=== PATIENT | female | born 1970 | race Asian ===

== ENCOUNTER → 2023-07-20 | Outpatient (REF) | payer OTHER, SELFPAY | LOC: DHSLP | PROVIDERS: ATTENDING PHYSICIAN Internal Medicine Critical Care Medicine | DX: G47.30 Sleep apnea, unspecified (principal); R06.83 Snoring; R40.0 Somnolence | CPT/HCPCS: 95800 ==

== ENCOUNTER 2024-01-13 16:14 | Emergency (ER) | payer OTHER, SELFPAY ==
[2024-01-13 16:20] VITALS: BP 146/89
--- NOTE | 2024-01-13 16:29 | ED.PDOC.TRB ---
ED Provider Triage
-
Patient seen by provider in Triage?: Seen in Triage
A medical screening examination has been initiated by a qualified medical provider. Based on the assessment performed at this time, it has been determined that an emergent medical condition may exist and the patient has been informed that further
medical evaluation and possible additional diagnostic testing may be needed.
HPI: This is a medical evaluation conducted in person to initiate diagnostic evaluation and provide initial therapeutics. Please see further documentation by the treating clinician.
GENERAL: Alert , in no apparent distress
ENT: No visible abnormalities
LUNGS: No acute respiratory distress
NEUROLOGICAL: Alert and oriented
SKIN: Skin intact. No visible changes.
MUSCULOSKELETAL: Moving extremities normally
PSYCH: Normal and appropriate interaction.
53 y/o F
h/o previouso hypothyroid
not on meds now
here with papitations x 4-5 days, intermittnt fluttering
no lightheadedness, cp, sob
had outpatient labs yesterday but doesnt have results
called pcp and told to come in
no h/o afib
wella ppearing
heart sounds reg on brief exam
will initiate ekg, labs
[2024-01-13 16:49] LABS: % Basophils 0.3 % (0-2); % Eosinophils 0.9 % (0-6); % Immature Granulocytes 0.3 % (0-0.5); % Lymphocytes 26.9 % (20.5-51.1); % Monocytes 6.1 % (1.7-9.3); % Neutrophils 65.5 % (42.2-75.2); Absolute Lymphocytes 0.9 10^3/uL (1.2-3.4); Absolute Monocytes 0.2 10^3/uL (0.1-0.6); Absolute Neutrophils 2.2 10^3/uL (1.4-6.5); Hematocrit 34.8 % (37.0-47.0); Hemoglobin 12.2 g/dL (12.0-16.0); Mean Corp Hgb Conc. 35.1 g/dL (33.0-37.0); Mean Corpuscular Hgb 30.6 pg (27.0-31.0); Mean Corpuscular Volume 87.2 fL (81.0-99.0); Mean Platelet Volume 10.2 fL (7.4-10.4); Nucleated Red Blood Cells % 0 %; Platelet Count 159 10^3/uL (130-400); Red Blood Cell Count 3.99 10^6/uL (4.20-5.40); Red Cell Dist. Width 11.9 % (11.5-14.5); White Blood Cell Count 3.4 10^3/uL (4.8-10.8)
[2024-01-13 17:11] LABS: Troponin I < 0.012 ng/ml
[2024-01-13 17:15] LABS: ALT (SGPT) 17 U/L (0-35); AST (SGOT) 24 U/L (14-36); Albumin 4.5 g/dl (3.5-5.0); Alkaline Phosphatase 58 U/L (38-126); Blood Urea Nitrogen 10 mg/dl (7-17); Calcium 9.2 mg/dl (8.4-10.2); Carbon Dioxide 23 mmol/L (22-30); Chloride 104 mmol/L (98-107); Glucose 149 mg/dl (70-99); Magnesium 1.9 mg/dl (1.6-2.3); Potassium 3.9 mmol/L (3.5-5.1); Sodium 142 mmol/L (135-145); Total Bilirubin 1.1 mg/dl (0.2-1.3); eGFR > 60.00
[2024-01-13 17:40] LABS: TSH Reflex To Free T4 2.88 uIU/ml (0.47-4.68)
[2024-01-13 19:00] VITALS: BP 128/75
[2024-01-13 19:25] VITALS: BP 126/76
[2024-01-13 19:45] VITALS: BP 126/76
[2024-01-13 20:00] VITALS: BP 123/79
[2024-01-13 21:00] VITALS: BP 114/78
--- NOTE | 2024-01-13 21:19 | ED.GENMED ---
History of Present Illness
General
Chief Complaint: Heart Rate Problem
Source: patient
Exam Limitations: none
Time Seen by Provider: 01/13/24 21:00
History of Present Illness
History of Present Illness:
This is a 53 year old female that comes in with c/o feeling of palpations. State that it is like a fluttering in her chest. States that she has had this before when she had Thyroid issues. State that she called her PCP and was told to come to the ER
as she was unable to see patient. Sates that she was at work on her computer and it felt like something was moving or fluttering in her chest. State that has a headache at this time. Denies any fever, chills, chest pain, SOB, abd pain, nausea,
vomiting, diarrhea, dizziness, urinary burning
Past History
Past History
ED Past Medical History: Hypothyroidism; Negative Asthma, HTN, Hypercholesterolemia or NIDDM
ED Past Surgical History: Other (Breast augmentation)
Social History
Tobacco: Former smoker
Alcohol: Occasional
Personal:
Living: with family
Review of Systems
Review of Systems
All Other Systems: ROS reviewed and negative except as documented in HPI and ROS
Constitutional: Reports no symptoms; Denies fever or chills
EENT: Reports no symptoms
Respiratory: Reports no symptoms; Denies cough or trouble breathing
Cardiac: Reports other (Feeling of fluttering in the chest); Denies chest pain
ABD/GI: Reports no symptoms; Denies abdominal pain, nausea, vomiting or diarrhea
: Reports no symptoms; Denies dysuria, frequency or urgency
Musculoskeletal: Reports no symptoms
Skin: Reports no symptoms
Neurological: Reports headache; Denies dizzy
Psychiatric: Reports no symptoms
Phy Exam
General Physical Exam
General Presentation: well appearing and no apparent distress
General age: appears stated age
General Skin: warm and dry
General Habitus: normal
General Mental: alert
General Hydration: appears well hydrated
ENT Exam
ENT Exam: TM's normal, pharynx normal and neck supple
Eye Exam
Eye Exam: EOMI
Cardiovascular Exam
Cardiovascular Exam: no edema, no murmur, normal peripheral pulses and bradycardia
Pulmonary Exam
Pulmonary Exam: lungs clear, no respiratory distress, no rales, chest non tender, no crackles, no rhonchi, no wheezing and no cough
Gastrointestinal Exam
Gastrointestinal Exam: normal bowel sounds, non tender, soft, no organomegaly, no pulsatile mass and non distended
Musculoskeletal Exam
Musculoskeletal Exam: full ROM and no edema
Skin Exam
Skin Exam: normal color, warm/dry, no rash and no petechia
Psychiatric Exam
Psychiatric Exam: normal mood/affect
Course
Orders/Labs/Results
Orders:
Orders
01/13/24 16:24
Electrocardiogram (*1) Urgent
Reason for Study: Palpitations
01/13/24 16:25
EKG- Treatment ONCE
01/13/24 16:37
Complete Blood Count/With Diff Urgent
Comprehensive Metabolic Panel Urgent
Magnesium Urgent
TSH Reflex To Free T4 Urgent
Troponin I Urgent
Abnormal Lab Results
01/13/24
16:37
WBC 3.4 L 10^3/uL
(4.8-10.8)
RBC 3.99 L 10^6/uL
(4.20-5.40)
Hct 34.8 L %
(37.0-47.0)
Absolute Lymphs (auto) 0.9 L 10^3/uL
(1.2-3.4)
Glucose 149 H mg/dl
(70-99)
01/13/24 16:37
01/13/24 16:37
Leukopenia, Glucose nonfasting. Troponin <0.012, TSH normal at 2.88
Vital Signs
Initial and Last Documented VS:
Initial Vital Signs
Temp Pulse Resp BP Pulse Ox
98.3 F 66 18 146/89 99
01/13/24 16:20 01/13/24 16:20 01/13/24 16:20 01/13/24 16:20 01/13/24 16:20
Last Documented Vital Signs
Temp Pulse Resp BP Pulse Ox
98.3 F 59 17 123/79 100
01/13/24 16:20 01/13/24 20:45 01/13/24 20:45 01/13/24 20:00 01/13/24 20:45
MDM/Problems Addressed
Differential Diagnosis Includes:
Palpitations, Atrial fib
MDM/Problems Addressed:
This is a 53 year old female that comes in with c/o of her heart fluttering. States that she had this before when her thyroid was off. States that today she was just sitting at her computer and she felt like there was something moving in her chest.
Will check labs, ECG
Explained to patient that her blood work shows that her WBC are low. Her TSH is normal. Patient is bradycardic on the monitor at 59. Encouraged patient to increase her water intake to 8-8oz glasses daily and follow up with the family doctor as they
may wish to have patient wear a Holter monitor. Patient to return with any concerns.
Chronic conditions affecting care:
NA
Acute Exacerbation and/or Progression of Chronic Illness:
NA
*Pulse Oximetry
Patient hypoxic: no
*EKG
Interpreted by ED Provider?: Yes
Heart Rate: 60
Rate: normal
Rhythm: sinus
[place]: normal axis
Interval: normal interval
QRS Pattern: low voltage
Ischemia: no ischemia
*Rn Oncology Clinical Interpretation
Rate: bradycardiac
Heart Rate: 59
Rhythm: sinus
*Critical Care Note
Total Time (30-74mins, 75-104mins- exclusive of procedures): Not Applicable
ED Attending Note
-
Portions of this chart may have been created with voice recognition software.� Occasional wrong word or��sound alike� substitutions may have occurred due to the inherent limitations of voice recognition software.
Discharge Plan
Departure
Patient Disposition: Home (Routine Discharge)
Date of Disposition: 01/13/24
Time of Disposition: 21:26
Patient with high blood pressure during this ER visit?: No
Condition: Good
Covid-19: Not Applicable
Discharge Problem:
Palpitations
Instructions: Palpitations (DC)
Prescriptions:
No Action
cholecalciferol (vitamin D3) 125 mcg/mL (5,000 unit/mL) Drops
7,000 unit PO DAILY
Rx Instructions:
vitamin D3 comes with vitamin K 10mcg
vitamin B complex Tablet
1 tab PO DAILY
Rx Instructions:
pt takes liposomal methyl B complex
ferrous sulfate 27 mg iron Tablet
27 mg PO DAILY
Referrals:
Morelia Luna MD [Family Provider] - Follow up in 2-3 days
Activity Restrictions/Additional Instructions:
As discussed, your blood work shows that your white blood cell count is slightly low. Your ECG is normal along with your Thyroid function. Please follow up with the family doctor as she may wish to have you wear a Holter monitor to see if you are
having any arrhythmias. Please increase our water intake to 8-8oz glasses daily. IF YOU HAVE CHEST PAIN, OR ANY OTHER CONCERNS PLEASE RETURN TO THE EMERGENCY ROOM.
Interventions
Interventions:
*Risk Screen - Suicide Last Done: 01/13/24 16:20
*General Assessment Last Done: 01/13/24 16:20
*Neglect/Abuse Screening Last Done: 01/13/24 16:20
ED- Cardiac Assessment Last Done: 01/13/24 19:58
ED- Pulmonary Assessment Last Done: 01/13/24 19:58
Discharge Date and Time
Print Language: ARMENIAN
== END 2024-01-13 21:48 | disposition home or self-care (01) ==
LOC: EMR 16:14
PROVIDERS: Physician Assistant; EMERGENCY PHYSICIAN Emergency Medicine; FAMILY PHYSICIAN Family Medicine
DX: R00.2 Palpitations (principal); E03.9 Hypothyroidism, unspecified; D72.819 Decreased white blood cell count, unspecified; Z87.891 Personal history of nicotine dependence
CPT/HCPCS: 99283; 80053; 83735; 84443; 84484; 85025; 93005

== ENCOUNTER 2024-06-22 12:20 | Emergency (ER) | payer OTHER, SELFPAY ==
[2024-06-22 12:26] VITALS: BP 150/88
[2024-06-22 12:48] LABS: % Basophils 0.2 % (0-2); % Eosinophils 0.5 % (0-6); % Immature Granulocytes 0.2 % (0-0.5); % Lymphocytes 19.3 % (20.5-51.1); % Monocytes 6.1 % (1.7-9.3); % Neutrophils 73.7 % (42.2-75.2); Absolute Lymphocytes 0.8 10^3/uL (1.2-3.4); Absolute Monocytes 0.3 10^3/uL (0.1-0.6); Absolute Neutrophils 3.1 10^3/uL (1.4-6.5); Hematocrit 39.8 % (37.0-47.0); Hemoglobin 13.7 g/dL (12.0-16.0); Mean Corp Hgb Conc. 34.4 g/dL (33.0-37.0); Mean Corpuscular Hgb 30.2 pg (27.0-31.0); Mean Corpuscular Volume 87.9 fL (81.0-99.0); Nucleated Red Blood Cells % 0 %; Platelet Count 185 10^3/uL (130-400); Red Blood Cell Count 4.53 10^6/uL (4.20-5.40); Red Cell Dist. Width 11.9 % (11.5-14.5); White Blood Cell Count 4.2 10^3/uL (4.8-10.8)
[2024-06-22 13:03] LABS: Troponin I < 0.012 ng/ml
[2024-06-22 13:12] LABS: ALT (SGPT) 18 U/L (0-35); AST (SGOT) 23 U/L (14-36); Albumin 4.6 g/dl (3.5-5.0); Alkaline Phosphatase 61 U/L (38-126); Blood Urea Nitrogen 14 mg/dl (7-17); Calcium 9.1 mg/dl (8.4-10.2); Carbon Dioxide 26 mmol/L (22-30); Chloride 106 mmol/L (98-107); Glucose 104 mg/dl (70-99); Potassium 3.9 mmol/L (3.5-5.1); Sodium 139 mmol/L (135-145); Total Bilirubin 1.3 mg/dl (0.2-1.3); Total Protein 7.4 g/dl (6.3-8.2); eGFR > 60.00
--- NOTE | 2024-06-22 13:40 | ED.GENMED ---
History of Present Illness
General
Chief Complaint: Chest Pain
Source: patient and records
Exam Limitations: none
Time Seen by Provider: 06/22/24 13:21
History of Present Illness
History of Present Illness:
54yoF with a history of a R chylothorax in 2021 s/p pleurodesis and menopause currently on hormone replacement therapy presenting for evaluation of chest pain. Patient reports pain underneath her left breast that started around 10 PM last night.
Symptoms began 30 minutes after she was lifting weights and doing lifts. The pain is described as sharp and is worse with deep breathing. Pain radiates up into the upper chest and shoulder region. She denies any back pain. She has chronic
lymphedema but denies any worsening leg swelling. No calf pain, fevers, cough, dizziness, syncope, paresthesias, vomiting, abdominal pain. No tobacco use.
Past History
Past History
ED Past Medical History: Hypothyroidism; Negative Asthma, HTN, Hypercholesterolemia or NIDDM
ED Past Surgical History: Other (Breast augmentation)
Social History
Tobacco: Former smoker
Alcohol: Occasional
Personal:
Living: with family
Phy Exam
General Physical Exam
General Presentation: well appearing and no apparent distress
General age: appears stated age
General Skin: warm and dry
General Habitus: normal
General Mental: alert
ENT Exam
ENT Exam: normocephalic
Cardiovascular Exam
Cardiovascular Exam: regular rate/rhythm, no edema and no murmur
Pulmonary Exam
Pulmonary Exam: lungs clear, no respiratory distress, no rales, chest non tender, no crackles and no rhonchi
Neurological Exam
Neurological Exam: alert
[place] Coma Scale
Eye Opening: Spontaneous
Verbal Response: Oriented
Motor Response: Obeys Commands
GCS Total Score: 15
Skin Exam
Skin Exam: normal color and warm/dry
Psychiatric Exam
Psychiatric Exam: normal mood/affect
Scores
Heart Score for Chest Pain Patients
STEMI patient?: No
History: Slightly or Non-Suspicious
ECG: Normal
Age: >45 - <65 years
Risk Factors: No Risk Factors
Troponin: </= Normal Limit
Heart Score for Chest Pain Patients: 1
Heart Score Risk: 2.5% MACE over next 6 weeks
Course
Orders/Labs/Results
Orders:
Orders
06/22/24 12:21
ECG [Electrocardiogram (*1)] Urgent
Reason for Study: Chest Pain
EKG- Treatment ONCE
Chest [CR Chest - 2 Views ] Urgent
Comment: hx of pneumo
Reason For Exam: chest pain
06/22/24 12:33
Complete Blood Count/With Diff Urgent
Comprehensive Metabolic Panel Urgent
Troponin I Urgent
06/22/24 13:39
Cardiac Monitoring- Treatment ONCE
06/22/24 13:49
D-Dimer Urgent
06/22/24 14:26
CT Chest PE Study Urgent
Comment:
Reason For Exam: pleuritic L sided pain, elevated D-dimer
Abnormal Lab Results
06/22/24 06/22/24
12:33 13:49
WBC 4.2 L 10^3/uL
(4.8-10.8)
Absolute Lymphs (auto) 0.8 L 10^3/uL
(1.2-3.4)
Lymphocytes % 19.3 L %
(20.5-51.1)
D-Dimer 1.65 H ug/mlFEU
(0.00-0.50)
Glucose 104 H mg/dl
(70-99)
06/22/24 12:33
06/22/24 12:33
Vital Signs
Initial and Last Documented VS:
Initial Vital Signs
Temp Pulse Resp BP Pulse Ox
98.0 F 88 18 150/88 100
06/22/24 12:26 06/22/24 12:26 06/22/24 12:26 06/22/24 12:26 06/22/24 12:26
Last Documented Vital Signs
Temp Pulse Resp BP Pulse Ox
98.0 F 72 18 121/73 100
06/22/24 12:26 06/22/24 15:45 06/22/24 15:45 06/22/24 15:00 06/22/24 15:45
MDM/Problems Addressed
Differential Diagnosis Includes:
54yoF here with sharp pleuritic L sided chest pain since last night. Started after lifting weights. Otherwise asymptomatic. Recently started on hormone replacement therapy. She is mildly hypertensive with otherwise normal vitals. Oxygen saturation
100% on room air. Differential diagnosis includes but is not limited to: pneumonia, pneumothorax, musculoskeletal, pleurisy, PE, ACS
Initial ED plan: Workup obtained in triage. EKG shows NSR without ischemic changes and troponin WNL. CXR shows a small R pleural effusion with patchy parenchymal opacity in the R lower lung compatible with atelectasis and/or pneumonia. Patient has
no symptoms on the right and denies any cough/fever and white count is normal. She had a CT chest in November 2023 at [facility] which showed stable small R pleural effusion and pleural thickening. Will check D-dimer.
*EKG
Interpreted by ED Provider?: Yes
EKG Intrepretation Date: 06/22/24
Heart Rate: 86
Rate: normal
Rhythm: sinus
[place]: normal axis
Interval: normal interval
QRS Pattern: normal QRS
Ischemia: no ischemia
*Critical Care Note
Total Time (30-74mins, 75-104mins- exclusive of procedures): Not Applicable
Update Note
Update Note:
D-dimer elevated and CTA chest subsequently ordered. CT negative for pulmonary embolism. There is postoperative changes to the right lung with atelectasis versus scarring. No evidence of pneumonia. Liver cysts also seen which patient was
previously aware of. Patient is stable for discharge. Unclear etiology of pain, question musculoskeletal. Supportive care discussed. Advised follow-up with PCP and ED return precautions discussed. Patient in agreement with plan and was
discharged in stable condition.
ED Attending Note
-
Portions of this chart may have been created with voice recognition software.� Occasional wrong word or��sound alike� substitutions may have occurred due to the inherent limitations of voice recognition software.
Discharge Plan
Departure
Patient Disposition: Home (Routine Discharge)
Date of Disposition: 06/22/24
Time of Disposition: 17:09
Patient with high blood pressure during this ER visit?: No
Discharge Problem:
Pleuritic chest pain
Instructions: Chest Pain PCP Follow Up
Prescriptions:
No Action
cholecalciferol (vitamin D3) 125 mcg/mL (5,000 unit/mL) Drops
7,000 unit PO DAILY
Rx Instructions:
vitamin D3 comes with vitamin K 10mcg
vitamin B complex Tablet
1 tab PO DAILY
Rx Instructions:
pt takes liposomal methyl B complex
ferrous sulfate 27 mg iron Tablet
27 mg PO DAILY
Referrals:
Morelia Luna MD [Family Provider] -
Activity Restrictions/Additional Instructions:
Please call your family doctor tomorrow to schedule a follow-up appointment. Return to the ER with any new or worsening symptoms.
Interventions
Interventions:
*Risk Screen - Suicide Last Done: 06/22/24 12:26
*General Assessment Last Done: 06/22/24 12:26
*Neglect/Abuse Screening Last Done: 06/22/24 12:26
ED- Fall Risk Assessment Last Done: 06/22/24 14:17
*ED COVID-19 Vaccine History Last Done: 06/22/24 12:26
*Nursing Disposition Last Done: 06/22/24 17:14
ED- Cardiac Assessment Last Done: 06/22/24 14:17
Discharge Date and Time
Discharge Date/Time: 06/22/24 17:21
Print Language: [id number]
[2024-06-22 13:47] VITALS: BP 120/80
[2024-06-22 14:00] VITALS: BP 115/80
[2024-06-22 14:09] LABS: D-Dimer 1.65 ug/mlFEU (0.00-0.50)
[2024-06-22 14:14] VITALS: BMI 25.4
[2024-06-22 15:00] VITALS: BP 121/73
== END 2024-06-22 17:21 | disposition home or self-care (01) ==
LOC: EMR 12:20
PROVIDERS: Physician Assistant; Student in an Organized Health Care Education/Training Program; EMERGENCY PHYSICIAN Student in an Organized Health Care Education/Training Program; FAMILY PHYSICIAN Family Medicine
DX: R07.81 Pleurodynia (principal); J90 Pleural effusion, not elsewhere classified; E03.9 Hypothyroidism, unspecified; Z87.891 Personal history of nicotine dependence; Z79.890 Hormone replacement therapy; I89.0 Lymphedema, not elsewhere classified
CPT/HCPCS: 99285; 71046; 71275; 80053; 84484; 85025; 85379; 93005; Q9967